=== PATIENT | male | born 1980 | race Two or more races ===

== ENCOUNTER → 2019-09-05 | Day surgery (SDC) | payer OTHER ==
[~2019-09-05] MED LIST: FENTANYL CITRATE/PF 100MCG/2 ML INJ ONE; LIALDA1.2 GM PO; MIDAZOLAM HCL 2 MG/2 ML VIAL ONE; PROPOFOL IV EMULSION 10 MG/ML 50 ML VIAL ONE
[2019-09-05 11:45] VITALS: BP 113/61
== END | disposition home or self-care (01) ==
LOC: OR 07:16
PROVIDERS: ATTEND Internal Medicine Gastroenterology
DX: K21.0 Gastro-esophageal reflux disease with esophagitis (principal); K29.70 Gastritis, unspecified, without bleeding; K51.50 Left sided colitis without complications; K44.9 Diaphragmatic hernia without obstruction or gangrene; K64.8 Other hemorrhoids; B96.81 Helicobacter pylori [H. pylori] as the cause of diseases classified elsewhere
CPT/HCPCS: 43239; 45380; J2250; J2704; J3010; 45378